=== PATIENT | female | born 1990 | race Caucasian/White ===

== ENCOUNTER 2016-09-24 14:56 | Emergency (ER) | payer MEDICAID ==
[2016-09-24 15:09] VITALS: RESP 16; TEMP 99
[2016-09-24] MEDS ORDERED: ONDANSETRON DISINTEGRATING 4 MG TAB PO ONE (15:10)
--- NOTE | 2016-09-24 15:21 | UCPHY ---
H & P Patient Type: New Chief Complaint Nursing Narrative: Nausea x 1 day. Denies vomiting. Tonsillectomy 09/21. Time Seen by Provider: 09/24/16 15:20 HPI/ROS: Chief Complaint: Nausea status post tonsillectomy HPI: 25-year-old female who is 4 days status post tonsillectomy coming in presenting with nausea. She is also feeling a bit constipated. She has been drinking oral fluids and has been taking Lortab elix for her pain. Has been having some persistent tonsil pain postoperatively but this is not worsening. Has also been having some increasing mucus that her physicians attributes to her increased in dairy intake from the ice cream that she has been eating no abdominal pain. No fevers or chills. Is urinating normally. ROS: 10 point Review of Systems is negative except as noted in the HPI. PMH: Tonsillectomy Social History: No smoking, no alcohol, no recreational drug use Family History: non-contributory Physical Exam: Gen: Awake, Alert, No Distress HEENT: Nose: no rhinorrhea Eyes: PERRLA, EOMI Mouth: Moist mucosa bilateral eschars on her tonsillar beds appear normal postoperatively without any bleeding or erythema or signs of infection at this time. Uvula is midline and nonedematous Neck: Supple, no JVD Chest: nontender, lungs clear to auscultation Heart: S1, S2 normal, no murmur Abd: Soft, non-tender, no guarding Back: no CVA tenderness, no midline tenderness Ext: no edema, non-tender Skin: no rash Neuro: CN II-XII intact, Sensation grossly intact, Strength 5/5 in bilateral upper and lower extremities - Personal History LMP (Females 10-55): 8-14 Days Ago Current Tetanus/Diphtheria Vaccine: Yes Tetanus Vaccine Date: 2014 - Medical/Surgical History Hx Asthma: No Hx Chronic Respiratory Disease: No Hx Diabetes: No Hx Cardiac Disease: No Hx Renal Disease: No Hx Cirrhosis: No Hx Alcoholism: No Hx HIV/AIDS: No Hx Splenectomy or Spleen Trauma: No Other PMH: Tonsillectomy - Family History Significant Family History: No pertinent family hx - Social History Smoking Status: Never smoked Constitutional: Initial Vital Signs Temperature (C) 37.2 C 09/24/16 14:58 Heart Rate 68 09/24/16 14:58 Respiratory Rate 16 09/24/16 14:58 Blood Pressure 112/68 09/24/16 14:58 O2 Sat (%) 96 09/24/16 14:58 O2 Delivery Mode Room Air Allergies/Adverse Reactions: Pertussis Vaccines Allergy (Unknown, Verified 09/24/16 15:09) Lethargy Home Medications: Medication Instructions Recorded Transfer 7.5-325 Tablet 09/24/16 Ondansetron Odt [Zofran Odt 4 mg 4 mg PO Q4 PRN #10 tab 09/24/16 (*)] Medical Decision Making ED Course/Re-evaluation: 25-year-old female with nausea post tonsillectomy. I think this is a combination of both constipation for decreased fluid intake, constipation from her narcotics and the narcotics and cells. I have recommended that she start taking MiraLax. She is feeling improved with ondansetron here and I will give her prescription for the same. I have also recommended that he switch from eating ice cream to sore bit days and non dairy frozen foods if she is getting increased mucus buildup. She will follow up with her ENT early next week. I have also encouraged her to try to decrease her hydrocodone intake and advised her that the antiemetics may cause her little bit of constipation as well. - Data Points Medications Given: Discontinued Medications Ondansetron HCl (Zofran Odt) 4 mg PO EDNOW ONE Stop: 09/24/16 15:11 Last Admin: 09/24/16 15:13 Dose: 4 mg Departure - Departure Disposition: Home, Routine, Self-Care Clinical Impression: Nausea Condition: Good Instructions: Acute Nausea and Vomiting (ED) Additional Instructions: Please start using MiraLax [id number] per package instructions for constipation. You may take ondansetron every 4-8 hours as needed for nausea, please be aware that this may cause some constipation so only use as necessary. Try to decrease your hydrocodone use and switch to liquid Tylenol if possible. Make sure to drink plenty of fluids. Switch from ice cream to non dairy frozen Desert such as Sorbet to decrease your dairy intake. Follow up with your ear nose and throat doctor in 2-3 days for re-evaluation. Referrals: MARVIN ARAMBULA,. [Primary Care Provider] - As per Instructions Prescriptions: Ondansetron Odt [Zofran Odt 4 mg (*)] 4 mg PO Q4 PRN #10 tab PRN Reason: nausea - PQRS PQRS Measurement: NA
[2016-09-24 16:42] VITALS: BP 90/68; PULSE 69; O2SAT 94
== END 2016-09-24 16:25 | disposition home or self-care (01) ==
LOC: CED 14:56
DX: R11.0 Nausea (principal); K59.00 Constipation, unspecified; Z98.890 Other specified postprocedural states
CPT/HCPCS: 99204-PO; G0463-PO